=== PATIENT | female | born 1960 | race Caucasian/White ===

== ENCOUNTER 2017-04-08 09:51 | Emergency (ER) | payer BC ==
--- NOTE | 2017-04-08 11:17 | ER NURSING DOCUMENTATION ---
Nurse's Notes [facility] Name:Princess Swenson Age:57 yrs Sex:Female :1960 Arrival Date:04/08/2017 Time:09:51 Bed5 Private MD:Ann-Marie Zayas Diagnosis:Superficial Thrombophlebitis Presentation: 04/08 10:11 Presenting complaint: Patient states: pt has a hx of veins phlebitis and had one flare st up the last few day in the left leg that is not getting any better and is turning a little red. Transition of care: Home. 10:11 Acuity: CLAIRE 3 st 10:11 Method Of Arrival: Private Vehicle st Triage Assessment: 10:14 General: Appears in no apparent distress, Behavior is cooperative. Pain: Complains of st pain in left leg Pain currently is 3 out of 10 on a pain scale. Cardiovascular: No deficits noted. Respiratory: No deficits noted. GI: No deficits noted. Derm: swelling behind the left knee with bruising up into the upper leg along a line and a hard line felt in the lower leg. Historical: - Allergies: No known drug Allergies; - Home Meds: 1. Synthroid Oral 2. Flonase Nasal - PMHx: HYPOTHYROIDISM; geoffrey troubles; - PSHx: vein surgerys ; - Tetanus: < 10 years. - Ebola Screening: : Patient denies exposure to infectious person. Patient denies travel to an Ebola-affected area in the 21 days before illness onset. . - Social history: Smoking status: Patient states was never smoker of tobacco. Patient/guardian denies using alcohol, marijuana. Screenin:15 Infectious Disease Risk None. Abuse screen: Denies threats or abuse. Denies injuries st from another. pt feels safe at home. Nutritional screening: No deficits noted. Vital Signs: 10:15 BP 110 / 72; Pulse 75; Resp 18; Temp 98.8; Pulse Ox 97% on R/A; Pain 3/10; st ED Course: 09:53 Patient arrived in ED. ds 09:53 Ann-Marie Zayas MD is Private Physician. ds 09:57 Jeffy Tyson MD is Attending Physician. cd 10:10 Nakita Angela RN is Primary Nurse. st 10:[address] 10:16 Valuables Remains with patient Patient has correct armband on for positive st identification. Placed in gown. Bed in low position. Warm blanket given. 10:20 Patient moved to [facility]. 10:43 Patient moved back from [facility]. mk 11:06 Ann-Marie Zayas MD is Referral Physician. cd Administered Medications: No medications were administered Outcome: 11:07 Discharge ordered by . cd 11:14 Discharged to home ambulatory. st 11:14 Condition: stable 11:14 Discharge instructions given to patient, Instructed on discharge instructions, follow up and referral plans. medication usage, Prescriptions given X 1, [facility] to [facility] 11:17 Patient [address] the ED. st 04/09 10:04 Discharge F/U Call: Unable to reach: no answer lp Signatures: Nakita Angela RN Ivone Chapin RN RN lp otRenetta, Jeffy Martin MD MD cd Kimbro, Marcy mk
--- NOTE | 2017-04-08 11:17 | ER PHYSICIAN DOCUMENTATION ---
Physician Documentation [facility] Name:Princess Swenson Age:57 yrs Sex:Female :1960 Arrival Date:04/08/2017 Time:09:51 Bed5 Private MD:Ann-Marie Zayas ED PhysicianDaJeffy dias Disposition: 04/08 11:10 Chart complete. cd Disposition: 04/08/17 11:07 Discharged to Home/Self Care. Impression: Superficial Thrombophlebitis. - Condition is Good. - Discharge Instructions: THROMBOPHLEBITIS, Superficial. - Prescriptions for Cephalexin 500 mg Oral Capsule - take 1 capsule by ORAL route every 6 hours for 10 days; 40 capsule. - Medical Reconciliation form form. - Follow up: Ann-Marie Zayas MD; When: 7 - 10 days; Reason: Recheck today's complaints, Continuance of care. - Problem is new. - Symptoms are unchanged. - Notes: Warm packs to left leg. Elevate your leg above your heart as much as possible for the next 2 - 3 days. Take Keflex 500mg by mouth every 6 hours for 10 days. HPI: 10:00 This 57 yrs old Female presents to ER via Private Vehicle with complaints of cd Leg Pain - L LEG. 10:00 The patient presents with swelling, tenderness, erythema. The complaints affect the cd medial aspect of left thigh, medial aspect of left knee and medial aspect of left calf. Context: The problem was sustained at home, resulted from patient reports recently travelling to [place]. She has had "Phlebitis" in her same leg in the past, but never a true DVT. She has never been on anti-coagulants. She has had a vein stripping in the same leg. She has noticed a tender cord develop just like her previous phlebitis. She has also noticed an area of erythema, warmth and tenderness on the medial aspect of her left leg over the last couple days. She denies fever.. Onset: The symptom(s)/episode began/occurred 3 day(s) ago. Historical: - Allergies: No known drug Allergies; - Home Meds: 1. Synthroid Oral 2. Flonase Nasal - PMHx: HYPOTHYROIDISM; geoffrey troubles; - PSHx: vein surgerys ; - Tetanus: < 10 years. - Ebola Screening: : Patient denies exposure to infectious person. Patient denies travel to an Ebola-affected area in the 21 days before illness onset. . - Social history: Smoking status: Patient states was never smoker of tobacco. Patient/guardian denies using alcohol, marijuana. ROS: 10:15 Constitutional: Negative for chills, fever, poor PO intake. cd 10:15 MS/extremity: Positive for erythema, swelling, tenderness. 10:15 All other systems are negative. Exam: 10:15 Constitutional: The patient appears alert, awake, non-diaphoretic, non-toxic, well cd developed, well nourished. 10:15 Musculoskeletal/extremity: Extremities: grossly normal except: noted in the medial aspect of left calf and medial aspect of left knee and medial aspect of left thigh: erythema, swelling, tenderness, ROM: no acute changes, Circulation is intact in all extremities. Sensation intact. Weight bearing: able to fully bear weight, DVT Exam: negative Homans' sign noted on exam, no appreciated bluish discoloration, pain, that is mild, of the left leg, swelling, that is mild, of the left leg, erythema, that is mild, of the left leg, increased warmth, that is mild, of the left leg. 10:15 Skin: Appearance: normal except for affected area. Vital Signs: 10:15 BP 110 / 72; Pulse 75; Resp 18; Temp 98.8; Pulse Ox 97% on R/A; Pain 3/10; st MDM: 09:57 Patient medically screened. cd 10:05 Data interpreted: Pulse oximetry: on room air is 97 %. Interpretation: normal. cd 10:20 Differential diagnosis: DVT, Superficial Thrombophlebitis, Cellulitis. cd 11:00 Data reviewed: vital signs, nurses notes, radiologic studies, doppler, and as a result, cd I will discharge patient, administer antibiotics Keflex and warm packs and elevation. 11:10 Counseling: I had a detailed discussion with the patient and/or guardian regarding: the cd historical points, exam findings, and any diagnostic results supporting the discharge/admit diagnosis, radiology results, the need for outpatient follow up, for a recheck, with the patient's primary care provider, to return to the emergency department if symptoms worsen or persist or if there are any questions or concerns that arise at home. 04/09 10:01 Order name: US EXT LOWER LEFT [id number]; Complete Time: 09:05 EDMS 04/10 Interpretation: Normal Except: See Radiologist reading below. Superficial cd thrombophlebitis, NO DVT. Dispensed Medications: No medications were administered Signatures: Nakita Angela, RN Jeffy Gallardo MD MD cd
--- NOTE | 2017-04-09 07:18 | US REPORT ---
Routine venous duplex examination of the major deep veins of the left leg demonstrates no primary or secondary evidence of deep venous thrombosis. Superficial thrombosis is noted involving the greater saphenous vein extending from the mid calf to the mid thigh. No other abnormality is identified. IMPRESSION: 1. Examination is negative for major deep venous thrombosis in the left leg. 2. Superficial thrombosis extending from the mid calf to the mid thigh is noted. The findings were provided to Dr. Tyson upon completion of the examination. [facility]
== END 2017-04-08 11:17 | disposition home or self-care (01) ==
LOC: ER 09:51
DX: I80.02 Phlebitis and thrombophlebitis of superficial vessels of left lower extremity (principal)
CPT/HCPCS: 99284